=== PATIENT | male | born 1985 | race Caucasian/White ===

== ENCOUNTER 2018-04-04 10:36 | Emergency (ER) | payer OTHER ==
[2018-04-04 10:52] VITALS: RESP 18; TEMP 98.3
[2018-04-04 10:55] VITALS: BMI 43.0
--- NOTE | 2018-04-04 11:27 | ED PDOC ---
Arrival/HPI - General Chief Complaint: Back Pain Time Seen by Provider: 04/04/18 10:57 Historian: Patient - History of Present Illness Narrative History of Present Illness (Text): 04/04/18 11:23 [id number] with past medical history of hypertension who present with complaint of upper back pain s/p trauma this morning. States he slipped on ice this morning and fell landing on his back. Notes taking Tylenol 2hrs ago. Denies hitting his head anywhere. Denies LOC, focal weakness, urinary/fecal incontinence, any other complaint. Past Medical History - Provider Review Nursing Documentation Reviewed: Yes - Infectious Disease Hx of Infectious Diseases: None - Tetanus Immunization Tetanus Immunization: Unknown - Cardiac Hx Cardiac Disorders: Yes Hx Hypertension: Yes - Pulmonary Hx Respiratory Disorders: No - Neurological Hx Neurological Disorder: No - HEENT Hx HEENT Disorder: No - Renal Hx Renal Disorder: No - Endocrine/Metabolic Hx Endocrine Disorders: No - Hematological/Oncological Hx Blood Disorders: No - Integumentary Hx Dermatological Disorder: No - Musculoskeletal/Rheumatological Hx Musculoskeletal Disorders: No - Gastrointestinal Hx Gastrointestinal Disorders: No - Genitourinary/Gynecological Hx Genitourinary Disorders: No - Psychiatric Hx Psychophysiologic Disorder: No Hx Substance Use: No - Past Surgical History Past Surgical History: No Previous - Suicidal Assessment Feels Threatened In Home Enviroment: No Family/Social History - Physician Review Nursing Documentation Reviewed: Yes Family/Social History: Unknown Family HX Smoking Status: Heavy Smoker > 10 Cigarettes Daily Hx Alcohol Use: Yes Hx Substance Use: No Hx Substance Use Treatment: No Allergies/Home Meds Allergies/Adverse Reactions: Allergies No Known Allergies Allergy (Verified 04/04/18 10:51) Home Medications: Home Meds Medication Instructions Recorded Confirmed RX: Lisinopril 20 mg PO DAILY 04/19/14 04/04/18 Review of Systems - Physician Review All systems were reviewed & negative as marked: Yes - Review of Systems Constitutional: Normal Eyes: Normal ENT: Normal Respiratory: Normal Cardiovascular: Normal Gastrointestinal: Normal Genitourinary Male: Normal Musculoskeletal: Back Pain Skin: Normal Neurological: Normal Endocrine: Normal Hemo/Lymphatic: Normal Psychiatric: Normal Physical Exam Vital Signs Reviewed: Yes Vital Signs Temp Pulse Resp BP Pulse Ox 04/04/18 10:51 98.3 F 78 18 155/87 H 95 Temperature: Afebrile Blood Pressure: Normal Pulse: Regular Respiratory Rate: Normal Appearance: Positive for: Well-Appearing, Non-Toxic, Comfortable Pain Distress: None Mental Status: Positive for: Alert and Oriented X 3 - Systems Exam Head: Present: Atraumatic, Normocephalic Pupils: Present: PERRL Extroacular Muscles: Present: EOMI Conjunctiva: Present: Normal Mouth: Present: Moist Mucous Membranes Neck: Present: Normal Range of Motion Respiratory/Chest: Present: Clear to Auscultation, Good Air Exchange. No: Respiratory Distress, Accessory Muscle Use Cardiovascular: Present: Regular Rate and Rhythm, Normal S1, S2. No: Murmurs Abdomen: No: Tenderness, Distention, Peritoneal Signs Back: Present: Paraspinal Tenderness (Parathoracic tenderness). No: Midline Tenderness, Pain with Leg Raise Upper Extremity: Present: Normal Inspection. No: Cyanosis, Edema Lower Extremity: Present: Normal Inspection. No: Edema Neurological: Present: GCS=15, CN II-XII Intact, Speech Normal Skin: Present: Warm, Dry, Normal Color. No: Rashes Psychiatric: Present: Alert, Oriented x 3, Normal Insight, Normal Concentration Medical Decision Making ED Course and Treatment: 04/04/18 19:49 PT in emergency department for stated history. He was neurologically intact. Ambulatory in emergency department Thoracic spine xray IMPRESSION: Minimal dextroscoliosis upper thoracic spine. No fracture or spondylolisthesis identified. Normal kyphosis. Result was DW the pt and he was DC home with ibuprofen rx. - RAD Interpretation Radiology Orders: 04/04/18 11:09 DORSAL (THORACIC) SPINE [RAD] Stat - Medication Orders Current Medication Orders: Discontinued Medications Ketorolac Tromethamine (Toradol) 60 mg IM STAT STA Stop: 04/04/18 11:11 Disposition/Present on Arrival - Present on Arrival Any Indicators Present on Arrival: No History of DVT/PE: No History of Uncontrolled Diabetes: No Urinary Catheter: No History of Decub. Ulcer: No History Surgical Site Infection Following: None - Disposition Have Diagnosis and Disposition been Completed?: Yes Diagnosis: Thoracic sprain Disposition: HOME/ ROUTINE Disposition Time: 12:45 Patient Plan: Discharge Condition: STABLE Discharge Instructions (ExitCare): Upper Back Pain Additional Instructions: Follow up with your doctor Return to emergency department for any new or worsening symptoms Prescriptions: RX: Ibuprofen [Motrin Tab] 600 mg PO Q6 #15 tab Referrals: FAMILY PROVIDER,NO [Primary Care Provider] - Follow up with primary Dao William III, MD [Medical Doctor] - Follow up with primary Forms: [employer] ([employer])
--- NOTE | 2018-04-04 14:33 | RAD ---
Date of service: 04/04/2018 HISTORY: back pain s/p trauma COMPARISON: No prior. FINDINGS: BONES: Minimal dextroscoliosis upper thoracic spine. No fracture or spondylolisthesis appreciable. No destructive bony lesion identified. DISC SPACES: Normal. SOFT TISSUES: Normal. OTHER FINDINGS: None. IMPRESSION: Minimal dextroscoliosis upper thoracic spine. No fracture or spondylolisthesis identified. Normal kyphosis.
[2018-04-04 15:06] VITALS: BP 146/74; PULSE 98; O2SAT 97
== END 2018-04-04 15:09 | disposition home or self-care (01) ==
LOC: ED 10:36
DX: S23.3XXA Sprain of ligaments of thoracic spine, initial encounter (principal); W00.0XXA Fall on same level due to ice and snow, initial encounter; I10 Essential (primary) hypertension; F17.210 Nicotine dependence, cigarettes, uncomplicated
CPT/HCPCS: 72070; 96372; 99283; J1885